=== PATIENT | female | born 1995 | race Caucasian/White ===

== ENCOUNTER 2019-03-26 23:39 | Emergency (ER) | payer OTHER ==
[~2019-03-26] VITALS: Ht 162.6 cm; Wt 78.0 kg
[2019-03-26 23:51] VITALS: Ht 162.6 cm; Wt 78.0 kg
[2019-03-26] MEDS ORDERED: KETOROLAC 30 MG INJ IV STA (23:53)
[2019-03-26] MEDS ORDERED: ONDANSETRON 4 MG INJ IV STA (23:53)
[2019-03-26] MEDS ORDERED: SOD CHLORIDE 0.9% 1,000 ML IV STA (23:53)
--- NOTE | 2019-03-27 02:41 | ERD ---
ER Documentation Chief Complaint Chief Complaint sudden onset right flank pain since 1800, + constipation, 11 days s/p HPI This is a 24-year-old female who presents for evaluation of sudden onset right flank pain at about 6 PM. Additionally she also has recurrent chronic constipation, she had a normal spontaneous vaginal delivery 11 days ago. She has been having hematuria, she does not clearly endorse dysuria, as she said that given her constipation is hard to tell, she is having pain from urinating specifically. She denies any nausea vomiting, no alleviating or aggravating factors. ROS All systems reviewed and are negative except as per history of present illness. Medications Home Meds Active Scripts Cephalexin* (Keflex*) 500 Mg Capsule, 500 MG PO QID for 10 Days, CAP Prov:KWAN GUO MD 03/27/19 Allergies Allergies: Coded Allergies: No Known Allergy (Unverified , 03/26/19) PMhx/Soc Medical and Surgical Hx: pt denies Medical Hx, pt denies Surgical Hx Hx Alcohol Use: No Hx Substance Use: No Hx Tobacco Use: No Smoking Status: Never smoker Physical Exam Vitals Vital Signs Date Temp Pulse Resp B/P (MAP) Pulse Ox O2 O2 Flow FiO2 Time Delivery Rate 03/27/19 73 18 111/89 100 Room Air 01:51 (96) 03/26/19 99.3 68 22 122/80 99 23:51 (94) Physical Exam Const: No acute distress Head: Atraumatic Eyes: Normal Conjunctiva ENT: Normal External Ears, Nose and Mouth. Neck: Full range of motion. No meningismus. Resp: Clear to auscultation bilaterally Cardio: Regular rate and rhythm, no murmurs Abd: Soft, non tender, non distended, no negative Devries sign, no rebound or guarding. Normal bowel sounds Skin: No petechiae or rashes Back: No midline or flank tenderness Ext: No cyanosis, or edema Neur: Awake and alert Psych: Normal Mood and Affect Result Diagram: 03/27/19 0015 03/27/19 0015 Results 24 hrs Laboratory Tests Test 03/27/19 00:02 03/27/19 00:04 03/27/19 00:05 03/27/19 00:15 Bedside Urine pH 7.0 (LAB) Bedside Urine 1+ Protein (LAB) Bedside Urine Negative Glucose (UA) Bedside Urine 1+ Ketones (LAB) Bedside Urine 2+ Blood Bedside Urine Negative Nitrite (LAB) Bedside Urine 1+ Leukocyte Esteras e (L POC Beta HCG, POSITIVE Qualitative Urine Color YELLOW Urine Clarity CLEAR Urine pH 7.0 Urine Specific 1.016 [place] Urine Ketones TRACE mg/dL Urine Nitrite NEGATIVE mg/dL Urine Bilirubin NEGATIVE mg/dL Urine NEGATIVE mg/dL Urobilinogen Urine Leukocyte 1+ Ly/ul Esterase Urine Microscopic 11 /HPF RBC Urine Microscopic 24 /HPF WBC Urine Bacteria FEW /HPF Urine Mucus FEW /HPF Urine Hemoglobin 1+ mg/dL Urine Glucose NEGATIVE mg/dL Urine Total NEGATIVE mg/dl Protein White Blood Count 11.5 10^3/ul Red Blood Count 4.05 10^6/ul Hemoglobin 9.7 g/dl Hematocrit 33.4 % Mean Corpuscular 82.5 fl Volume Mean Corpuscular 24.0 pg Hemoglobin Mean Corpuscular 29.0 g/dl Hemoglobin Concen t Red Cell 16.2 % Distribution Width Platelet Count 345 10^3/UL Mean Platelet 10.8 fl Volume Immature 0.500 % Granulocytes % Neutrophils % 79.2 % Lymphocytes % 14.3 % Monocytes % 5.1 % Eosinophils % 0.6 % Basophils % 0.3 % Nucleated Red 0.0 /100WBC Blood Cells % Immature 0.060 10^3/ul Granulocytes # Neutrophils # 9.1 10^3/ul Lymphocytes # 1.7 10^3/ul Monocytes # 0.6 10^3/ul Eosinophils # 0.1 10^3/ul Basophils # 0.0 10^3/ul Nucleated Red 0.0 10^3/ul Blood Cells # Sodium Level 141 mmol/L Potassium Level 4.2 mmol/L Chloride Level 109 mmol/L Carbon Dioxide 21 mmol/L Level Anion Gap 11 Blood Urea 8 mg/dl Nitrogen Creatinine 0.69 mg/dl Est Glomerular > 60 mL/min Filtrat Rate mL/min Glucose Level 94 mg/dl Calcium Level 9.4 mg/dl Total Bilirubin 0.6 mg/dl Direct Bilirubin 0.00 mg/dl Indirect 0.6 mg/dl Bilirubin Aspartate Amino 30 IU/L Transf (AST/SGOT) Alanine 9 IU/L Aminotransferase (ALT/SGPT) Alkaline 85 IU/L Phosphatase Total Protein 7.4 g/dl Albumin 4.0 g/dl Globulin 3.40 g/dl Albumin/Globulin 1.17 Ratio Lipase 89 U/L Current Medications Medications Dose Sig/Darryl Start Time Status Last (Trade) Ordered Route PRN Stop Time Admin Dose Reason Admin Sodium 1,000 ml @ Q1H STAT 03/26/19 DC 03/27/19 Chloride 1,000 mls/hr IV 23:53 00:10 03/27/19 00:52 Ondansetron 4 mg ONCE STAT 03/26/19 DC 03/27/19 HCl (Zofran IV 23:53 00:09 Inj) 03/26/19 23:55 Ketorolac 30 mg ONCE STAT 03/26/19 DC 03/27/19 Tromethamine IV 23:53 00:10 (Toradol) 03/26/19 23:55 Procedures/MDM This is a 24-year-old female presents for evaluation of right flank pain. On exam the patient had no peritoneal signs, her work-up was remarkable for pyuria, as well as RBCs noted. Her renal function was within normal limits, ultrasound showed mild to moderate hydro-, the clinical picture was very consistent with most likely kidney stone. I discussed this with the patient and family, given that her pain has improved, she has normal renal function, I do not feel a CT abdomen pelvis was warranted at this time, and the patient and family agreed with this. Recommended treating the pyuria with Keflex, advised to return to the ED, if she has recurrent pain that does not respond to pain control at home, as this could be a sign of a larger stone that may have difficulty passing. At discharge the patient was in no distress Departure Diagnosis: Primary Impression: Flank pain Additional Impressions: UTI (urinary tract infection) Urinary tract infection type: site unspecified Hematuria presence: with hematuria Qualified Codes: N39.0 - Urinary tract infection, site not specified; R31.9 - Hematuria, unspecified Kidney stone Condition: KWAN Bose MD Mar 27, 2019 02:41
[2019-03-27] MEDS ORDERED: CEPH-443 PO (02:42)
[2019-03-27 02:56] VITALS: BP 107/62; PULSE 68; RESP 18
[2019-03-27] MEDS ORDERED: CEPHALEXIN 500 MG CAP PO ONE (03:00)
== END 2019-03-27 03:00 | disposition home or self-care (01) ==
LOC: E/R 23:39
DX: N39.0 Urinary tract infection, site not specified (principal)
CPT/HCPCS: 76775; 80053; 81001; 81003; 81025; 83690; 85025; 87086; J1885; J2405; J7030; Z7610; 36415; 96374; 96375